=== PATIENT | male | born 1980 | race Hispanic/Latino ===

== ENCOUNTER → 2017-05-25 | Outpatient (CLI) | payer BC, OTHER ==
--- NOTE | 2017-05-27 09:34 | US ---
EXAM DESCRIPTION: Testicular CLINICAL HISTORY: 36 years Male, LEFT TESTICULAR PAIN COMPARISON: None. TECHNIQUE: Real-time sonographic images of the scrotum are obtained. FINDINGS: Right testicle measures 4.0 x 3.0 x 1.8 cm. The left testicle measures 3.9 x 2.7 x 2.2 cm. Testicles are diffusely homogeneous and normal in echogenicity. No focal mass. Right epididymal head measures 7 x 7 x 5 mm. The left epididymal head measures 6 x 9 x 10 mm. Normal vascular flow is seen in both testicles. Small anechoic fluid collection in the left scrotum is seen.. IMPRESSION: Small left simple hydrocele. Otherwise unremarkable scrotal ultrasound. Electronically signed by: Jim Cannon MD 05/27/2017 9:33 AM ACCOUNT GENERAL MANAGER
== END | disposition home or self-care (01) ==
LOC: US 15:32
PROVIDERS: ATTEND Family Medicine
DX: N50.812 Left testicular pain (principal)

== ENCOUNTER → 2017-09-08 | Outpatient (CLI) | payer BC | LOC: GMAB 12:42 | PROVIDERS: ATTEND Family Medicine | DX: Z00.01 Encounter for general adult medical examination with abnormal findings (principal) ==